=== PATIENT | male | born 1955 | race African-American/Black ===

== ENCOUNTER → 2021-05-22 | Outpatient (CLI) | payer OTHER ==
[~2021-05-22] MED LIST: ATENOLOL 25 MG25 M1 PO; LOSARTAN-HCTZ1 EAC3 PO; NORVASC5 M1 PO; PREDNISONE 10 M10 MG PO; SUPER THERAVIT1 EACH PO; XARELTO15 MG PO; XARELTO20 MG PO
== END ==
LOC: SJCVC 15:37
PROVIDERS: ATTEND Internal Medicine
DX: R07.9 Chest pain, unspecified (principal); R06.02 Shortness of breath; I10 Essential (primary) hypertension; Z72.89 Other problems related to lifestyle; Z79.899 Other long term (current) drug therapy

== ENCOUNTER 2021-05-23 11:08 | Inpatient (IN) | payer OTHER ==
[2021-05-23] VITALS (10 sets, daily range): BP systolic 00–139; BP diastolic 0–84
[~2021-05-23] VITALS: Ht 182.9 cm; Wt 102.1 kg
[2021-05-23 11:35] LABS: ABSOLUTE NEUTROPHILS 8.9 thou/uL (1.4-8.2); BASOPHILS 0.5 % (0.0-2.0); EOSINOPHILS 0.6 % (0.0-3.0); HEMATOCRIT 44.9 % (42.0-52.0); HEMOGLOBIN 14.9 gm/dL (14.0-18.0); LYMPHOCYTES 13.3 % (24.0-44.0); MCH 29.2 pg (26.0-34.0); MCHC 33.1 g/dL (28.0-37.0); PLATELET COUNT 115 thou/uL (150-400); POLYS 76.6 % (36.0-66.0); RDW 14.1 % (10.5-14.5); WBC 11.6 thou/uL (4.0-11.0)
[2021-05-23 11:50] LABS: APTT 30.7 Seconds (24.5-32.8); CALCIUM 9.1 mg/dL (8.5-10.1); CREATININE 1.4 mg/dL (0.7-1.3); INR 1.13; PROTIME 12.2 Seconds (10.5-12.1)
[2021-05-23 11:58] LABS: MAGNESIUM 2.2 mg/dL (1.8-2.4); TOTAL BILIRUBIN 1.5 mg/dL (0.2-1.0); TOTAL PROTEIN 7.7 g/dL (6.4-8.2)
--- NOTE | 2021-05-23 16:11 | EKG ---
[place] [address] [facility] [place] [address] ELECTROCARDIOGRAM REPORT Name: BLESSING AU Room #: 170-9 ADM IN M.R.#: [id number] Admission: 05/23/21 Attend Phys: Ilia Hutchison MD Discharge: Date of : 57 Report #: [id number] [facility] ED Test Date: 2021-05-23 Test Time: 11:19:42 Pat Name: BLESSING AU Department: Room: 170 Gender: M Theater Projectionist: ALDEN : 1955 Requested By: Wood Thompson Order Number: [id number] MD: Edis Galeas Measurements Intervals [place] Rate: 75 P: 52 MT: 140 QRS: -21 QRSD: 92 T: -27 QT: 401 QTc: 448 Interpretive Statements Sinus rhythm Borderline left axis deviation Abnormal T, consider ischemia, anterior leads No previous ECG available for comparison Electronically Signed On 05-23-2021 16:10:49 [employer] by Edis Galeas [email or web address] <ELECTRONICALLY SIGNED> By: Edis Galeas MD, [facility] 05/23/21 1610 1119 18 Edis Galeas MD, FACC /EPI
[2021-05-23] MEDS ORDERED: LOSARTAN-HCTZ1 EAC3 PO (19:34)
[2021-05-23] MEDS ORDERED: NORVASC5 M1 PO (19:34)
[2021-05-23] MEDS ORDERED: ATENOLOL 25 MG25 M1 PO (19:35)
[2021-05-23] MEDS ORDERED: SUPER THERAVIT1 EACH PO (19:35)
[2021-05-24] VITALS (9 sets, daily range): BP systolic 107–125; BP diastolic 6–84
[2021-05-24 02:57] LABS: MCHC 32.9 g/dL (28.0-37.0); MCV 88.1 fL (80.0-100.0); RBC 4.2 mil/uL (4.50-6.00); RDW 13.7 % (10.5-14.5); WBC 7.3 thou/uL (4.0-11.0)
[2021-05-24 03:17] LABS: HEMOGLOBIN 12.2 gm/dL (14.0-18.0)
[2021-05-24 03:49] LABS: ALBUMIN 2.9 g/dL (3.4-5.0); CALCIUM 7.9 mg/dL (8.5-10.1); CREATININE 1.4 mg/dL (0.7-1.3); MAGNESIUM 1.9 mg/dL (1.8-2.4); POTASSIUM 3.5 mmol/L (3.5-5.1); TOTAL BILIRUBIN 0.5 mg/dL (0.2-1.0); TOTAL PROTEIN 6.4 g/dL (6.4-8.2)
[2021-05-25] VITALS (8 sets, daily range): BP systolic 120–150; BP diastolic 68–84
[2021-05-25 05:54] LABS: CALCIUM 8.3 mg/dL (8.5-10.1); CREATININE 1.2 mg/dL (0.7-1.3); MAGNESIUM 1.9 mg/dL (1.8-2.4); POTASSIUM 3.4 mmol/L (3.5-5.1)
[2021-05-26 04:30] VITALS: BP 126/80
[2021-05-26 05:21] LABS: CALCIUM 8.8 mg/dL (8.5-10.1); CREATININE 1.2 mg/dL (0.7-1.3); MAGNESIUM 1.9 mg/dL (1.8-2.4); POTASSIUM 4.3 mmol/L (3.5-5.1)
[2021-05-26 07:00] VITALS: BP 138/84
[2021-05-26] MEDS ORDERED: XARELTO15 MG PO ×2 (13:09→14:18)
[2021-05-26] MEDS ORDERED: XARELTO20 MG PO ×2 (13:10→14:18)
[2021-05-26 13:39] LABS: HEMATOCRIT 37.6 % (42.0-52.0); HEMOGLOBIN 12.2 gm/dL (14.0-18.0); MCH 28.8 pg (26.0-34.0); MCHC 32.5 g/dL (28.0-37.0); MCV 88.7 fL (80.0-100.0); PLATELET COUNT 148 thou/uL (150-400); RBC 4.24 mil/uL (4.50-6.00); RDW 14.5 % (10.5-14.5)
[2021-05-26 14:11] LABS: ABSOLUTE NEUTROPHILS 7.7 thou/uL (1.4-8.2)
--- NOTE | 2021-05-26 15:29 | 2DMMODE ---
[address] [address] 2 D/M-MODE ECHOCARDIOGRAM Name: BLESSING AU Room #: 209-P ADM IN M.R.#: [id number] Admission: 05/23/21 Attend Phys: Ilia Hutchison MD Discharge: Date of : 57 Report #: [id number] THIS REPORT FOR: cc: Tevin Pino MD, Steven A. MD Santiago, Patrick MD [facility] ~ APPROVED REPORT Study performed: 05/26/2021 14:31:01 EXAM: Comprehensive 2D, Doppler, and color-flow Echocardiogram Patient Location: Bedside Room #: 209 Status: routine BSA: 2.24 HR: 68 bpm BP: 126/76 mmHg Rhythm: NSR Other Information Study Quality: Good Indications Pulmonary Embolism Left Ventricle The left ventricle is normal size. There is normal LV segmental wall motion. There is normal left ventricular wall thickness. The left ventricular systolic function is normal. The left ventricular ejection fraction is within the normal range. LVEF is 55-60%. Right Ventricle Right ventricle is mildly dilated. The right ventricular systolic function is normal. Atria The left atrium size is normal. The right atrium size is normal. Aortic Valve The aortic valve is normal in structure. Mitral Valve The mitral valve is normal in structure. [address] [place] [address] 2 D/M-MODE ECHOCARDIOGRAM Name: BLESSING AU Room #: 209-P ADM IN M.R.#: [id number] Admission: 05/23/21 Attend Phys: Ilia Hutchison, Discharge: Date of : 57 Report #: [id number] Tricuspid Valve The tricuspid valve is normal in structure. Pulmonic Valve The pulmonary valve is normal in structure. Great Vessels The aortic root is normal in size. IVC is normal in size and collapses >50% with inspiration. Pericardium There is no pericardial effusion. <Conclusion> Normal left ventricle size/wall thickness central ejection fraction 60% Right ventricle mildly dilated/mildly hypokinetic Normal atrial size Normal aortic/mitral valve structure No echogenicity detected in the right atrium or right ventricle No pericardial effusion Normal aortic root size. <ELECTRONICALLY SIGNED> By: Sage Pruett MD, FACC 05/26/21 1528 1528 152 Sage Pruett MD, FACC /INF
[2021-05-26 15:30] VITALS: BP 120/80
[2021-05-26 17:02] VITALS: BP 120/80
[2021-05-26] MEDS ORDERED: PREDNISONE 10 M10 MG PO (18:11)
--- NOTE | 2021-05-28 12:37 | HC ---
[facility] [place] [address] CONSULTATION Name: BLESSING AU Room #: 209-P [facility] IN M.R.#: [id number] Admission: 05/23/21 Attend Phys: Ilia Hutchison MD Discharge: 05/26/21 Date of : 57 Report #: [id number] THIS REPORT FOR: cc: Tevin Pino MD, Steven A. MD Forman, John M. MD ~ DATE OF SERVICE: 05/24/2021 We were asked to see the patient by Dr. Pruett. HISTORY OF PRESENT ILLNESS: The patient is a 66-year-old with history of COVID pneumonia in early March. The patient experienced a full recovery, but has experienced shortness of breath for the last 2 weeks. The patient was seen in the office and an echo revealed a clot in the heart and subsequently a CT scan was done that showed significant pulmonary emboli bilaterally. The patient had pulmonary embolectomy in the construction craft laborer with Dr. Ledbetter last evening. We also note that the lower extremity venous Doppler showed left side deep venous thrombosis in the superficial femoral, popliteal and peroneal veins. The patient was admitted and placed on heparin drip. PAST MEDICAL HISTORY: Significant for hypertension. ALLERGIES: None known. 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 Does not tobacco use. Does not smoke. Alcohol, yes. REVIEW OF SYSTEMS: GENERAL: Denies fever or chills. EYES: Denies vision change. HEENT: Denies headache, hearing change, sinus problems. RESPIRATORY: As mentioned, shortness of breath over the last several weeks. No hemoptysis. CARDIAC: Denies chest pain or palpitations. GASTROINTESTINAL: Denies nausea, vomiting, abdominal pain. GENITOURINARY: Denies burning, frequency, urgency. MUSCULOSKELETAL: Denies bone or joint pain. SKIN: Denies rash or infection. NEUROLOGIC: Denies motor or sensory dysfunction. ENDOCRINE: Denies goiter or tremor. [facility] [address] [place] [address] CONSULTATION Name: BLESSING AU Room #: 209-P [facility] IN M.R.#: [id number] Admission: 05/23/21 Attend Phys: Ilia Hutchison MD Discharge: 05/26/21 Date of : 57 Report #: [id number] HEMATOLOGIC: Denies bruisability, bleeding. PHYSICAL EXAMINATION: VITAL SIGNS: The patient is in bed, O2 sat 93 on 1 liter, heart rate 71, blood pressure 119/77, respiratory rate 16, temperature 37.3. HEENT: No scleral icterus. No arcus. NECK: No mass, no bruit. CHEST: Clear to auscultation anteriorly. HEART: Rhythm regular. No murmur. ABDOMEN: Soft. No tenderness. EXTREMITIES: No clubbing, cyanosis, or edema. SKIN: No rash or infection. VASCULAR: 2-3+ dorsalis pedis pulses bilaterally. NEUROLOGIC: No motor or sensory dysfunction. PSYCHIATRIC: Oriented x 3 and appropriate. ASSESSMENT AND PLAN: The patient has right heart clot and pulmonary emboli related to deep vein thrombosis in the post-COVID setting. We note that anticoagulation is being given and pulmonary embolectomy has been done. I suspect that a course of anticoagulation will be given and I have no plans for cardiac surgery at this point, but I will review with others. We note plans for a repeat cardiac echo early in the week. Thank you for the consult. <ELECTRONICALLY SIGNED> By: Jesse Santillan MD 05/28/21 1237 1022 [id number] Jesse Santillan MD /nt
== END 2021-05-26 19:20 | disposition home or self-care (01) | DRG 228 ==
LOC: ER 11:08 → EROBS 12:36 → 2N 12:36
PROVIDERS: Emergency Medicine; Nuclear Medicine Nuclear Cardiology; ADMIT Internal Medicine; ATTEND Internal Medicine
PROC: B31U1ZZ Fluoroscopy of Pulmonary Trunk using Low Osmolar Contrast (ICD-10-PCS; principal; 2021-05-23)
PROC: 02CQ3ZZ Extirpation of Matter from Right Pulmonary Artery, Percutaneous Approach (ICD-10-PCS; principal; 2021-05-23)
PROC: 02C63ZZ Extirpation of Matter from Right Atrium, Percutaneous Approach (ICD-10-PCS; principal; 2021-05-23)
PROC: 02CP3ZZ Extirpation of Matter from Pulmonary Trunk, Percutaneous Approach (ICD-10-PCS; principal; 2021-05-23)
PROC: 4A023N6 Measurement of Cardiac Sampling and Pressure, Right Heart, Percutaneous Approach (ICD-10-PCS; principal; 2021-05-23)
PROC: B31S1ZZ Fluoroscopy of Right Pulmonary Artery using Low Osmolar Contrast (ICD-10-PCS; principal; 2021-05-23)
PROC: 02C Heart and Great Vessels, Extirpation (ICD-10-PCS; principal; 2021-05-23)
PROC: 02CR3ZZ Extirpation of Matter from Left Pulmonary Artery, Percutaneous Approach (ICD-10-PCS; principal; 2021-05-23)
PROC: B31T1ZZ Fluoroscopy of Left Pulmonary Artery using Low Osmolar Contrast (ICD-10-PCS; principal; 2021-05-23)
DX: I82.412 Acute embolism and thrombosis of left femoral vein (principal); I26.99 Other pulmonary embolism without acute cor pulmonale; J96.00 Acute respiratory failure, unspecified whether with hypoxia or hypercapnia; I74.3 Embolism and thrombosis of arteries of the lower extremities; I82.432 Acute embolism and thrombosis of left popliteal vein; I82.452 Acute embolism and thrombosis of left peroneal vein; Z20.822 Contact with and (suspected) exposure to COVID-19; I12.9 Hypertensive chronic kidney disease with stage 1 through stage 4 chronic kidney disease, or unspecified chronic kidney disease; N18.9 Chronic kidney disease, unspecified
CPT/HCPCS: 10081

== ENCOUNTER → 2021-05-23 | Outpatient (CLI) | payer OTHER | LOC: SJCVCIMAG 07:00 | PROVIDERS: ATTEND Internal Medicine | DX: I07.1 Rheumatic tricuspid insufficiency (principal); R06.02 Shortness of breath; I10 Essential (primary) hypertension; E78.1 Pure hyperglyceridemia; Z72.89 Other problems related to lifestyle; Z79.82 Long term (current) use of aspirin; Z79.899 Other long term (current) drug therapy ==

== ENCOUNTER → 2021-06-13 | Outpatient (CLI) | payer OTHER | LOC: SJCVCIMAG 11:58 | PROVIDERS: ATTEND Internal Medicine | DX: R94.31 Abnormal electrocardiogram [ECG] [EKG] (principal); I26.99 Other pulmonary embolism without acute cor pulmonale; I82.412 Acute embolism and thrombosis of left femoral vein; I10 Essential (primary) hypertension; E78.1 Pure hyperglyceridemia; R06.00 Dyspnea, unspecified; E78.5 Hyperlipidemia, unspecified; Z72.89 Other problems related to lifestyle; Z79.899 Other long term (current) drug therapy; Z79.82 Long term (current) use of aspirin ==